=== PATIENT | male | born 1960 | race Caucasian/White ===

== ENCOUNTER 2020-03-27 14:02 | Outpatient (CLI) | payer BC | END 2020-03-27 14:03 | disposition home or self-care (01) | LOC: COV 14:02 | PROVIDERS: ATTEND Family Medicine | DX: R05 Cough (principal); R06.02 Shortness of breath; R06.2 Wheezing; M79.10 Myalgia, unspecified site; R09.81 Nasal congestion; J34.89 Other specified disorders of nose and nasal sinuses; Z20.828 Contact with and (suspected) exposure to other viral communicable diseases ==

== ENCOUNTER 2020-10-30 12:48 | Outpatient (CLI) | payer BC ==
[2020-10-30 13:32] VITALS: BP 126/67
--- NOTE | 2020-10-30 13:32 | SLEEP CARE CONSULTATION ---
Information from patient questionnaire entered by Priscilla Ardon. I have reviewed and concur with the information entered by Priscilla Ardon. This document represents the service I personally performed and the decisions made by me, Laureen Serrano ARNP. History of Present Illness Service Date and Time: 10/30/2020 1248 Reason for Visit: New patient, Previously diagnosed sleep apnea, sleep apnea on CPAP therapy Chief Complaint: reports: Other (have not been to Doctor in years) Usual bedtime: 8 pm Time it takes to fall asleep: 5 minutes Snores at night: No Observed to quit breathing while asleep: Yes Sleeps alone due to snoring: No Number of times waking at night: 1 Reasons for waking at night: reports: Bathroom Toss, Turn, or Twitch while sleeping: Yes Recalls having dreams: No Usually gets out of bed at: 5 am Feels refreshed in the morning: No Morning headache: No Sleepy or fatigued during the day: No Ever fallen asleep while driving: No Takes day naps: No Dreams during day naps: No Prior sleep studies: Yes Year and Where: in [place], [place] Additional HPI information: HERMAN LEONARD was previously diagnosed to have , AHI unknown, sleep apnea- hypopnea syndrome and comes in today to establish care for CPAP therapy. He was originally diagnosed in [facility] and does not have a copy of his sleep study today. He cannot tell me the severity of his sleep apnea. - Parasomnia Symptoms Ever been unable to move upon waking from sleep: No Walks in sleep: No Talks in sleep: Yes Ever acted out dreams in sleep: Yes Ever felt weak in the knees when startled or emotional: No Bothered by creepy, crawly, restless sensations in legs: No Problems with memory or concentration: Yes CPAP Compliance Data - Data Reviewed with Patient Average duration of nightly device use: 6 hours 45 minutes Compliance rate %: 86.7 (06-18-2019 last day of recorded information) Current pressure setting (cmH2O): 14 Average residual AHI: 5.2 Average large leak: 6 hours 44 mins Compliance data discussion: He has been using a CPAP machine for about 10 years since testing positive in [facility]. His orders his supplies and he is not sure from where. He is wearing a full face mask ("half mask"). He is unsure of the last time the mask cushion. His headgear is getting worn out and he needs supplies. Subjective Patient concerns: reports: dry mouth, nose, throat (occasional, if doesn't get enough water in reservoir). denies: aerophagia, mask discomfort, air blowing in eyes, mask leak noise, condensation in mask/hose, nasal congestion, epistaxis, other Observed to snore while using device: No Current pressure setting perceived as: comfortable On therapy, patient: reports: sleeping better, awakening more refreshed, being more awake and alert during the day, more rested overall. denies: drowsiness while driving Initial [place] Sleepiness Scale score: 4 (in 2020) Past Medical History Past Medical History: reports: Hypertension, Stroke (June 2016) Social History The patient's occupation is a [employer]. Patient is and lives in [place]. Have you smoked in the past 12 months: No Cigarettes per day (20/pack): 10 Years of smokin Quit date: 2010 Smoking Pack Years: 15.0 Alcohol use: Yes Alcohol amount and frequency: 2 drinks daily Caffeine use: Yes Caffeine amount and frequency: 1 cup daily Family History Family history of sleep disordered breathing: Yes (mother, had tongue surgery ) Family Hx Sleep Apnea: Mother: Sleep apnea - Untreated Allergies and Home Medications Drug allergies reviewed: Yes (NKDA) Home medication list reviewed: Yes Allergy and home medication list: Trazodone HCTZ Lisinopril aspirin Atorvastatin Calcium Review of Systems Cardiovascular: reports: high blood pressure, leg or foot swelling Gastrointestinal: denies: heartburn Neurological: reports: gait or balance problems. denies: headaches Psychiatric: reports: anxiety. denies: Attention Deficit Hyperactivity, depression Ear/Nose/Throat: reports: nasal congestion, sinus problems, injury to nose, wisdom teeth removed. denies: tonsillectomy Musculoskeletal: reports: joint pain, back pain, joint swelling, muscle pain or cramping Immunologic: reports: sneezing Physical Exam Blood Pressure: 126/67 Cuff size: wrist Heart Rate: 81 O2 Saturation: 97 Height: 5 ft 11 in Weight: 250 lb Body Mass Index: 34.8 BMI Classification: Obese Heart: regular rate and rhythm Lungs: clear bilaterally Impression and Plan 1. Obstructive Sleep Apnea-Hypopnea Syndrome, unknown. The information on his memory chip is old data with the last date to be in in June 2019. He was instructed to take his chip home and put it in the machine to update it to the current information. He voiced understanding. Patient does not feel he can get a copy of his study since its over 10 years old. I will order home study to verify diagnosis and severity of sleep apnea. On CPAP therapy, the patient has better sleep quality and is more rested overall. Patient currently using a REMstar device. I informed patient of the current recall by [employer] and how to register his machine on their website by finding the link [email or web address] website. He voiced understanding and stated he will register his machine. He plans on continuing use of this machine at this time. Once we have results of his home study test, we will discuss replacement of his machine and transferring to a new [employer] for supplies. Patient's apnea severity and rationale for treatment to reduce apnea, improve sleep quality and reduce cardiovascular and cerebrovascular events was reviewed. I also reviewed the benefit of consistent device use of CPAP for hypertension and cerebrovascular disease (history of stroke 2017). * Continue autoCPAP pressure at 14 cmH2O * HST to verify diagnosis and severity * Notify me if snoring with mask or feeling that the pressure is too much or too little * Attempt to lose weight * Call this office if any problems using CPAP * Return for follow up after HST, or sooner if concerns arise Counseling Topics: Spare mask, Weight loss health impact Visit Type: In Office Time Spent with Patient (minutes): 31 Provider Statement: I spent 100% of the Face to Face Visit with the patient with greater than 50% spent counseling the patient and coordination of care.
== END 2020-10-30 12:49 | disposition home or self-care (01) ==
LOC: SC 12:48
PROVIDERS: ATTEND Nurse Practitioner Family
DX: G47.33 Obstructive sleep apnea (adult) (pediatric) (principal); Z87.891 Personal history of nicotine dependence; E66.9 Obesity, unspecified; Z68.34 Body mass index [BMI] 34.0-34.9, adult
CPT/HCPCS: 99203; 99212

== ENCOUNTER 2020-11-27 07:59 | Outpatient (CLI) | payer BC | END 2020-11-27 08:00 | disposition home or self-care (01) | LOC: SC 07:59 | PROVIDERS: ATTEND Nurse Practitioner Family | DX: G47.33 Obstructive sleep apnea (adult) (pediatric) (principal); R09.02 Hypoxemia | CPT/HCPCS: 95806 ==

== ENCOUNTER 2021-01-22 15:45 | Outpatient (CLI) | payer BC ==
--- NOTE | 2021-01-22 16:21 | SLEEP CARE CONSULTATION ---
Information from patient questionnaire entered by Vikash Naik. I have reviewed and concur with the information entered by Vikash Naik. This document represents the service I personally performed and the decisions made by , Laureen Serrano ARNP. History of Present Illness Service Date and Time: 01/22/2021 1545 Initial [place] Sleepiness Scale score: 4 (in 2020) Current [place] Sleepiness Scale score: 2 Additional HPI information: HERMAN LEONARD returns for follow up and results of the recently performed home sleep study. I explained the pathophysiology behind obstructive sleep apnea. We then spent quite a bit of time discussing different treatment options. For mild obstructive sleep apnea, surgery and oral appliance are alternatives to nasal CPAP therapy but in moderate or severe cases, nasal CPAP is the most effective and reliable treatment. Patient is a current CPAP user who did a home study to verify his diagnosis and severity. Patient intends to continue his CPAP therapy. Patient counseled not drink alcohol less than 4 hours before bedtime as it can increase snoring and apnea. Patient was cautioned about risks of drowsy driving until sleepiness symptoms resolve. Sleep Study - Results Type of Sleep Study: Home sleep study Prior sleep studies: Yes Polysomnography/Home Sleep Study results: Physician Impression: The quality of the study is good. The length of the study is adequate (> 240 minutes). Please also see the tabulated and graphic data. 1. Obstructive Sleep Apnea-Hypopnea (ICD-10 G47.33), moderate, with an AHI of 19.4/hr and loan SaO2 of 77%. During the study, the patient had 102 apneas (101 obstructive, 0 central, 1 mixed) and 56 hypopneas. The longest episode lasted 85.0 seconds. The respiratory events occurred more frequently during supine sleep (supine AHI was 21.0 and non-supine, 6.07). 2. Hypoxemia (ICD-10 R09.02), moderate, with the lowest oxygen saturation of 77 % and 52.3 minutes with SaO2 under 90%. Baseline oxygen saturation was normal (Average oxygen saturation was 92%). Allergies and Home Medications Home medication list reviewed: Yes (no changes) Review of Systems Review of systems same as previous: Yes (no changes) Physical Exam Heart Rate: 80 O2 Saturation: 96 Height: 5 ft 11 in Weight: 250 lb Body Mass Index: 34.8 BMI Classification: Obese Impression and Plan 1. Obstructive Sleep Apnea-Hypopnea Syndrome, moderate, with lowest oxygen saturation of 77%. We have been able to re-verify is diagnosis and severity. Continuing positive pressure therapy could benefit hypertension and cerebrovascular disease (stroke). The patient will be continue on nasal autoCPAP therapy with pressure set at 14 cmH2O. Compliance guidelines also reviewed. A copy of compliance guidelines will be given for reference at check out. Patient has a device that is over 10 years old. It is a REMstar 60 series which is also on the [employer] recall. Patient has not noticed any black debris in the his device or any chemical smells. He has no issues with using the device such as coughing, headaches or respiratory distress. The patients CPAP is over 5 years old and of reasonable use. Thus, the CPAP will be updated. A DWO prescription will be made. Compliance guidelines for new device and follow up discussed. 2. Hypoxemia, moderate, with the lowest oxygen saturation of 77 % and 52.3 minutes with SaO2 under 90%. His baseline oxygen saturation was normal with an average oxygen saturation of 92%. * Continue nasal auto CPAP therapy, pressure at 14 cm H2O. * Attempt to lose weight. * Avoid alcohol consumption near bedtime. * Avoid supine sleep until using CPAP. * The patient is again cautioned about driving until sleepiness completely resolves. * Return one month after CPAP obtained. I will assess response to therapy and compliance at that time. Counseling Topics: Weight loss health impact Visit Type: In Office Time Spent with Patient (minutes): 22 Provider Statement: I spent 100% of the Face to Face Visit with the patient with greater than 50% spent counseling the patient and coordination of care.
== END 2021-01-22 15:46 | disposition home or self-care (01) ==
LOC: SC 15:45
PROVIDERS: ATTEND Nurse Practitioner Family
DX: G47.33 Obstructive sleep apnea (adult) (pediatric) (principal); R09.02 Hypoxemia; E66.9 Obesity, unspecified; Z68.34 Body mass index [BMI] 34.0-34.9, adult
CPT/HCPCS: 99212; 99213

== ENCOUNTER 2021-05-28 15:25 | Outpatient (CLI) | payer BC ==
--- NOTE | 2021-05-28 16:05 | SLEEP CARE CONSULTATION ---
Information from patient questionnaire entered by Minerva James MA. I have reviewed and concur with the information entered by Minerva James MA. This document represents the service I personally performed and the decisions made by , Laureen Serrano ARNP. History of Present Illness Service Date and Time: 05/28/2021 1525 Previous diagnosis: Moderate, Obstructive Sleep Apnea-Hypopnea Syndrome AHI: 19.4 Reason for follow up: first compliance (04/18 FIRST STARTED) Equipment type: CPAP Equipment obtained from: [facility] Mask style: Full face Backup mask available: Yes (old mask) Last cushion change: 1 month Prior sleep studies: Yes Year and Where: in [place], [place] Type of Sleep Study: Home sleep study HPI additional information: HERMAN LEONARD was diagnosed to have moderate, AHI 19.4, obstructive sleep apnea- hypopnea syndrome and returned today for CPAP therapy first compliance follow- up. Sleep Study - Results Type of Sleep Study: Home sleep study Prior sleep studies: Yes Year and Where: in [place], [place] CPAP Compliance Data - Data Reviewed with Patient Average duration of nightly device use: 5 HOURS 51 MINUTES Compliance rate %: 73 Current pressure setting (cmH2O): 14 Average residual AHI: 1.0 Central apnea: .1 Obstructive apnea: .3 Average large leak: 54.4 Subjective Missed days of use due to: reports: mask issues (heated tube not staying connected to mask) Patient concerns: reports: mask discomfort, mask leak noise (improved with tightening straps), condensation in mask/hose (due to using reg tube; resolved with heated tubing but this is falling out of mask). denies: aerophagia, air blowing in eyes, nasal congestion, dry mouth, nose, throat, epistaxis, other Observed to snore while using device: No Current pressure setting perceived as: comfortable On therapy, patient: reports: other (hasn't noticed difference). denies: drowsiness while driving Initial [place] Sleepiness Scale score: 4 (in 2020) Current [place] Sleepiness Scale score: 2 Allergies and Home Medications Home medication list reviewed: Yes (no changes) Review of Systems Review of systems same as previous: Yes (no changes) Physical Exam Blood Pressure: 117/70 Cuff size: wrist Heart Rate: 78 O2 Saturation: 97 Height: 5 ft 11 in Weight: 250 lb (with clothes/shoes on) Body Mass Index: 34.8 BMI Classification: Obese Impression and Plan 1. Obstructive Sleep Apnea-Hypopnea Syndrome, moderate, with good treatment compliance and good apnea control. Patient states the heated hose that connects to the mask will pull off during the night. He also has to really tighten his straps to reduce the leaking around the mask. His will wake him up if the mask leaks. He is not sure if the new mask they sent him is the same size as the last mask. I advised him to call [facility] and ask them to see if they have sent him the right size of mask and to get him a new tube since the heated hose he has will not stay connected/pops out easily. I will adjust his pressure to 13 cmH2O since his residual AHI is 1.0 and this may improve the overall mask discomfort and air leaking. He voiced understanding and agreement with plan of care. I will have him follow up in 3 months. Patient's apnea severity and rationale for treatment to reduce apnea, improve sleep quality and reduce cardiovascular and cerebrovascular events was reviewed. I also reviewed the benefit of consistent device use of CPAP for hypertension and cerebrovascular disease (hx of stroke). * Change CPAP pressure to 13 cmH2O * Notify me if snoring with mask or feeling that the pressure is too much or too little * Attempt to lose weight * Call this office if any problems using CPAP * Return for follow up in 3 months, or sooner if concerns arise Counseling Topics: Spare mask, Weight loss health impact Follow up with Sleep Care in: 3 months Visit Type: In Office Time Spent with Patient (minutes): 21 Provider Statement: I spent 100% of the Face to Face Visit with the patient with greater than 50% spent counseling the patient and coordination of care.
[2021-05-28 16:06] VITALS: BP 117/70
== END 2021-05-28 15:26 | disposition home or self-care (01) ==
LOC: SC 15:25
PROVIDERS: ATTEND Nurse Practitioner Family
DX: G47.33 Obstructive sleep apnea (adult) (pediatric) (principal); E66.9 Obesity, unspecified; Z68.34 Body mass index [BMI] 34.0-34.9, adult
CPT/HCPCS: 99212; 99213

== ENCOUNTER 2021-10-11 06:35 | Outpatient (CLI) | payer BC ==
--- NOTE | 2021-10-11 17:38 | Ultrasound Report ---
PROCEDURE: Aorta Screening INDICATIONS: FORMER SMOKER TECHNIQUE: Real time scanning was performed of the aorta and iliac arteries, with image documentatio n. COMPARISON: none FINDINGS: Aorta: Proximal aortic diameter measures 2.6 x 2.4 cm. Mid-aorta measures 2.0 x 21 cm. Distal aor tic diameter is 2.0 x 2.0 cm. Iliac arteries: Right common iliac artery measures 1.3 x 1.1 cm. Left common iliac artery measures 1.2 x 1.0 cm. IMPRESSION: No hemodynamically stenosis. Reviewed by: Zofia Finch MD on 10/11/2021 5:37 PM PDT Approved by: Zofia Finch MD on 10/11/2021 5:37 PM PDT Station ID: [id number]
== END 2021-10-11 06:36 | disposition home or self-care (01) ==
LOC: DI 06:35
PROVIDERS: ATTEND Physician Assistant
DX: Z13.6 Encounter for screening for cardiovascular disorders (principal); Z87.891 Personal history of nicotine dependence

== ENCOUNTER 2021-10-29 06:57 | Outpatient (CLI) | payer BC ==
--- NOTE | 2021-10-29 14:33 | CT Report ---
PROCEDURE: Low Dose Lung Cancer Screen INDICATIONS: FORMER SMOKER TECHNIQUE: Noncontrast low-dose images were acquired from the pulmonary apices to the posterior costophrenic ang les. Multiplanar MIP reformats were then acquired. For radiation dose reduction, the following was used: automated exposure control, adjustment of mA and/or kV according to patient size. COMPARISON: None. FINDINGS: Image quality: Excellent. Lungs and pleura: Posterior right lower lobe nodule measuring 3 mm on series 4 image 207. Posterior and lateral left upper lobe nodule measuring 3 mm on series 4 image 129. No acute airspace opacity. N o significant pleural abnormality. Mediastinum: Heart size is normal. No pericardial effusion. Moderate coronary and aortic atheroscle rosis. No aortic aneurysm. Surgical enlarged mediastinal lymph node. Bones and chest wall: No suspicious lytic or blastic osseous chest wall lesion. Mild thoracic spine d egenerative changes. No axillary or supraclavicular lymphadenopathy is identified. Abdomen: Visualized upper abdomen solid organs and bowel loops appear normal in the absence of contr ast. IMPRESSION: 1. Lung-RADS Category 3: Probably Benign. 2. Small 3 mm pulmonary nodules are likely benign. 3. Follow-up low-dose CT of the chest in six months is recommended. 4. Moderate coronary and aortic atherosclerosis. Reviewed by: Kraig Grande MD on 10/29/2021 2:32 PM PDT Approved by: Kraig Grande MD on 10/29/2021 2:32 PM PDT Station ID: [id number]
== END 2021-10-29 06:58 | disposition home or self-care (01) ==
LOC: DI 06:57
PROVIDERS: ATTEND Physician Assistant
DX: Z12.2 Encounter for screening for malignant neoplasm of respiratory organs (principal); Z87.891 Personal history of nicotine dependence; R91.8 Other nonspecific abnormal finding of lung field; I25.10 Atherosclerotic heart disease of native coronary artery without angina pectoris

== ENCOUNTER 2022-05-21 13:46 | Outpatient (CLI) | payer BC ==
--- NOTE | 2022-05-21 19:42 | CT Report ---
PROCEDURE: CHEST WO INDICATIONS: ABN LDCT TECHNIQUE: Noncontrast 1mm axial images were acquired from the pulmonary apices to the posterior costophrenic an gles. Axial 5 mm soft tissue kernel reconstructions were performed as well as 8 mm axial MIP and cor onal and sagittal 5 mm reformations. For radiation dose reduction, the following was used: automate d exposure control, adjustment of mA and/or kV according to patient size. COMPARISON: 10/29/2021 FINDINGS: Image quality: Excellent. Lungs and pleura: 3.5 mm posterior right lower lobe lung nodule, 4/205 is stable in size and morphol ogy. There is no adjacent 2 mm calcification. Groundglass, wispy posterior lateral left upper lobe no dule at a midlung level, 4/139 is also stable at 3.7 mm. There are no new lung nodules. No acute pare nchymal consolidations or groundglass opacities. Minor linear atelectasis posteriorly at the costophr enic sulci. No pleural effusions or pleural calcifications. Central and peripheral airways are patent . Mediastinum: Heart size is normal. No pericardial effusion. No mediastinal adenopathy by size crit eria. Thoracic aorta and central pulmonary arteries are normal in size. Esophagus is normal in corie karey. No hiatal hernia. Bones and chest wall: No suspicious bony lesions. No vertebral body compression fractures. No axil fernie or supraclavicular adenopathy by size criteria. The thyroid is normal in size and there are no incidental findings. Abdomen: Diffuse, low-density left adrenal gland thickening, chronic. Visualized upper abdominal chinedu d organs and bowel loops appear otherwise normal in the absence of contrast. IMPRESSION: 1. No CT evidence of suspicious pulmonary nodule. 2. Stable 3 mm bilateral lung nodules. 3. Stable low-density left adrenal gland thickening. Lung RADS category 2, benign. Continue annual low-dose chest CT screening. Reviewed by: Olga Devine MD on 05/21/2022 6:40 PM [place] Approved by: Olga Devine MD on 05/21/2022 6:40 PM [place] Station ID: [id number]
== END 2022-05-21 13:47 | disposition home or self-care (01) ==
LOC: DI 13:46
PROVIDERS: ATTEND Physician Assistant
DX: R91.8 Other nonspecific abnormal finding of lung field (principal); E27.8 Other specified disorders of adrenal gland